=== PATIENT | male | born 1965 | race Caucasian/White ===

== ENCOUNTER → 2018-07-20 13:04 | Outpatient (CLI) | payer OTHER, SELFPAY ==
[2018-07-20 12:45] VITALS: BMI 30.3
--- NOTE | 2018-07-20 13:10 | RAD_ITS ---
STUDY: X-RAY - RIGHT WRIST REASON FOR EXAM: Male, 53 years old. Pain following injury. TECHNIQUE: AP and lateral view(s) of the wrist were obtained. COMPARISON: None. FINDINGS: Normal visualized distal radius and ulna. Normal radiocarpal articulation. Normal distal radioulnar articulation. Normal carpal bones. Normal carpal articulations. Normal carpometacarpal articulation of the thumb. Normal second through fifth carpometacarpal articulations. Normal visualized metacarpal bones. The soft tissue structures are unremarkable. RAD/Wrist 2 Views IMPRESSION: Normal x-ray examination of the wrist. Electronically Signed: Amador Irving, at 13:35 EST , Service support ,
--- NOTE | 2018-07-20 13:10 | RAD_ITS ---
STUDY: X-RAY - LEFT ELBOW REASON FOR EXAM: Male, 53 years old. Increasing left elbow pain following a strain. TECHNIQUE: AP and lateral view(s) of the elbow. COMPARISON: None. FINDINGS: Normal visualized humerus, radius and ulna. Normal radiocapitellar and ulnotrochlear articulations. The soft tissue structures are unremarkable. RAD/Elbow 2 Views IMPRESSION: Normal x-ray examination of the elbow. Electronically Signed: Amador Irving, at 13:35 EST , Service support ,
--- NOTE | 2018-07-20 13:10 | RAD_ITS ---
STUDY: X-RAY - RIGHT HAND REASON FOR EXAM: Male, 53 years old. Pain following injury. TECHNIQUE: 2 view(s) of the hand. COMPARISON: None. FINDINGS: Normal radiocarpal articulation. Normal distal radioulnar joint. Normal visualized carpal bones. Normal carpal articulations Normal carpometacarpal articulation of the thumb. Normal second through fifth carpometacarpal joints. Normal metacarpi. Normal metacarpophalangeal joint of the thumb. Normal interphalangeal joint of the thumb. Normal proximal and distal phalanges of the thumb. Normal metacarpophalangeal joints of the second through fifth fingers. Normal proximal and distal interphalangeal joints of the second through fifth fingers. Normal phalanges of the second through fifth fingers. Soft tissue swelling. RAD/Hand 2 Views IMPRESSION: Soft tissue swelling. Electronically Signed: Amador Irving, at 13:36 EST , Service support ,
== END ==
PROVIDERS: Referring Provider Physician Assistant; Visit Provider Physician Assistant
DX: M25.522 Pain in left elbow (principal); M25.531 Pain in right wrist; S69.91XA Unspecified injury of right wrist, hand and finger(s), initial encounter; X58.XXXA Exposure to other specified factors, initial encounter; Y93.9 Activity, unspecified; Y92.9 Unspecified place or not applicable; Y99.9 Unspecified external cause status
CPT/HCPCS: 73070; 73100; 73120

== ENCOUNTER → 2019-01-24 11:30 | Outpatient (CLI) | payer OTHER, SELFPAY ==
[2019-01-24 11:21] VITALS: BMI 30.3
--- NOTE | 2019-01-24 11:32 | RAD_ITS ---
STUDY: X-RAY - CERVICAL SPINE REASON FOR EXAM: Male, 53 years old. Neck pain TECHNIQUE: 5 view(s) of the cervical spine were obtained. COMPARISON: None FINDINGS: Normal anterior atlantoaxial articulation. Normal odontoid process. Normal cervical lordosis. There is a large anterior spur of the inferior endplate of C5. Endplate spondylosis of C6 and C7 is also noted. There is narrowing of the C5-6 disc space. There is bilateral foraminal narrowing at the C3-4 level. The soft tissue structures are unremarkable. RAD/Cerv Spine 4 or 5 Views IMPRESSION: Degenerative changes as detailed above. Bilateral foraminal narrowing at the C3-4 level. Electronically Signed: Oscar Pettit MD at 23:50 EDT , Service support ,
--- NOTE | 2019-01-24 11:49 | RAD_ITS ---
STUDY: X-RAY - RIGHT ELBOW REASON FOR EXAM: Male, 53 years old. Pain and stiffness. No history of trauma. TECHNIQUE: 3 view(s) of the elbow. COMPARISON: None. FINDINGS: Normal visualized humerus, radius and ulna. Normal radiocapitellar and ulnotrochlear articulations. The soft tissue structures are unremarkable. RAD/Elbow min 3 Views IMPRESSION: Normal x-ray examination of the elbow. Electronically Signed: Eloisa Olvera MD at 23:18 EDT , Service support ,
== END ==
PROVIDERS: Referring Provider Orthopaedic Surgery; Visit Provider Orthopaedic Surgery
DX: M65.4 Radial styloid tenosynovitis [de Quervain] (principal); M77.12 Lateral epicondylitis, left elbow; M77.8 Other enthesopathies, not elsewhere classified
CPT/HCPCS: 72050; 73080

== ENCOUNTER → 2019-04-18 09:40 | Outpatient (CLI) | payer OTHER, SELFPAY ==
[2019-03-07 07:59] VITALS: BMI 30.3
--- NOTE | 2019-04-18 09:43 | MRI_ITS ---
STUDY: MRI RIGHT ELBOW REASON FOR EXAM: Right elbow pain from working in August. TECHNIQUE: Standardized fat and water weighted pulse sequences were obtained in all 3 orthogonal planes. COMPARISON: Radiographs 01/24/2019. FINDINGS: Normal radio-capitellum articulation. Normal radial collateral ligamentous complex. There is mild tendinosis and an undersurface partial tear of the common extensor tendon (inversion recovery coronal images 12, 13). Normal ulnotrochlear articulation. Normal ulnar collateral ligamentous complex. Normal common flexor tendon. The cubital tunnel is normal, with a normal ulnar nerve. Normal biceps tendon and distal insertion. Normal lacertus fibrosis. Normal brachialis musculotendinous insertion. Normal triceps tendon and teno-osseous insertion. Normal olecranon process. There is very mild bone edema in the lateral epicondyle (inversion recovery coronal image 11). The visualized muscles of the distal arm and proximal forearm are normal. The soft tissue structures are unremarkable. MRI/Upper Ext Joint Only(Routine) IMPRESSION: Lateral epicondylitis with mild tendinosis and undersurface partial tear of the common extensor with very mild reactive bone edema in the lateral epicondyle. Electronically Signed: Trevor Hernandez MD at 11:38 EST Tel , Service support ,
== END ==
PROVIDERS: Referring Provider Orthopaedic Surgery; Visit Provider Orthopaedic Surgery
DX: M25.521 Pain in right elbow (principal)
CPT/HCPCS: 73221